=== PATIENT | male | born 1940 | race Caucasian/White ===

== ENCOUNTER 2017-08-05 12:09 | Inpatient (IN) | payer MEDICARE ==
[~2017-08-05] VITALS: Ht 175.3 cm; Wt 76.2 kg
[2017-08-05 12:44] LABS: BASOPHILS % (AUTO) 0.1 % (0.0-2.0); EOSINOPHILS % (AUTO) 0.4 % (0.0-6.0); HEMATOCRIT 39 % (39-51); HEMOGLOBIN 13.6 g/dL (13.5-17.5); LYMPHOCYTES # (AUTO) 0.9 /CMM (0.8-4.8); LYMPHOCYTES % (AUTO) 11.4 % (20.0-44.0); MEAN CORPUSCULAR HEMOGLOBIN 33 PG (26.0-33.0); MEAN CORPUSCULAR HGB CONC 35 g/dl (31.0-36.0); MEAN CORPUSCULAR VOLUME 94 fL (80-96); MONOCYTES # (AUTO) 0.4 /CMM (0.1-1.30); MONOCYTES % (AUTO) 5.2 % (2.0-12.0); NEUTROPHILS # (AUTO) 6.9 /CMM (1.8-8.9); NEUTROPHILS % (AUTO) 82.9 % (43.0-81.0); PLATELET COUNT (AUTO) 241 /CMM (150-450); RED BLOOD CELL COUNT(AUTO) 4.15 MIL/uL (4.5-6.0); WHITE BLOOD COUNT (AUTO) 8.2 K/uL (4.3-11.0)
[2017-08-05 12:52] LABS: CARBON DIOXIDE 27 mmol/L (21-32); CHLORIDE 103 mmol/L (98-107); CREATININE 1.3 mg/dL (0.6-1.3); GLUCOSE 116 mg/dL (74-106); POTASSIUM 3.9 mmol/L (3.5-5.1); SODIUM SERUM 138 mmol/L (136-145); UREA NITROGEN, BLOOD 14 mg/dL (7-18)
[2017-08-05 13:03] LABS: ALANINE AMINOTRANSFERASE 13 U/L (12-78); ALBUMIN 3.8 g/dL (3.4-5.0); ALCOHOL, BLOOD < 3 mg/dL (0-0); ALKALINE PHOSPHATASE 88 U/L (46-116); ASPARTATE AMINOTRANSFERASE 14 U/L (15-37); BILIRUBIN,DIRECT 0.2 mg/dL (0.0-0.2); BILIRUBIN,TOTAL 0.7 mg/dL (0.2-1.0); SALICYLATE 3.2 mg/dL (2.8-20.0); TOTAL PROTEIN, SERUM 7.5 g/dL (6.4-8.2)
[2017-08-05 13:11] LABS: ACETAMINOPHEN < 2 ug/ml (10-30)
[2017-08-05 13:23] LABS: APPEARANCE,URINE Clear (CLEAR); BILIRUBIN,URINE Negative (NEGATIVE); BLOOD, URINE Small Ery/uL (NEGATIVE); COLOR,URINE Yellow (YELLOW); KETONES,URINE Negative (NEGATIVE); LEUKOCYTE ESTERASE ,URINE Negative (NEGATIVE); NITRITE, URINE Negative (NEGATIVE); PH,URINE 7.5 (5.0-8.0); PROTEIN,URINE 30 mg/dl (NEGATIVE); UGLUCOSE Negative (NEGATIVE)
[2017-08-05 13:29] LABS: BACTERIA,URINE None seen /HPF (None Seen); SQUAMOUS EPITHELIAL CELL,UR Few /HPF (None Seen); WBC,URINE 0-3 /HPF (0-3)
[2017-08-05] MEDS ORDERED: HYDR-548 PO (13:51)
[2017-08-05] MEDS ORDERED: MAG HYDROX/AL HYDROX/SIMETH 30 ML UDC PO PRN (14:30)
[2017-08-05] MEDS ORDERED: MAGNESIUM HYDROXIDE 30 ML UDC PO PRN (14:30)
[2017-08-05] MEDS ORDERED: ACETAMINOPHEN 325 MG TABLET PO PRN (14:30)
[2017-08-05] MEDS ORDERED: clonazePAM 0.5 MG TABLET PO PRN (14:30)
[2017-08-05 15:00] VITALS: BP 175/97
[2017-08-05] MEDS ORDERED: HYDROCODONE/APAP 10/325MG 1 EA TABLET PO PRN (17:30)
[2017-08-05 20:40] VITALS: BP 171/97
[2017-08-05] MEDS: MIRTAZAPINE 15 MG TABLET PO SCH (21:33)
[2017-08-06 08:00] VITALS: BP 151/85
[2017-08-06] MEDS: AMLODIPINE BESYLATE 5 MG TABLET PO SCH (08:19)
[2017-08-06 10:03] LABS: CHOLESTEROL 173 mg/dL (<200); HDL CHOLESTEROL 65 mg/dL (40-60); LDL 106 mg/dL (0-99); TRIGLYCERIDES 62 mg/dL (30-150)
[2017-08-06 10:04] LABS: ALANINE AMINOTRANSFERASE 16 U/L (12-78); ALBUMIN 3.6 g/dL (3.4-5.0); ALKALINE PHOSPHATASE 81 U/L (46-116); ASPARTATE AMINOTRANSFERASE 15 U/L (15-37); BILIRUBIN,TOTAL 0.8 mg/dL (0.2-1.0); CARBON DIOXIDE 26 mmol/L (21-32); CHLORIDE 104 mmol/L (98-107); CREATININE 1.5 mg/dL (0.6-1.3); GLUCOSE 134 mg/dL (74-106); POTASSIUM 3.8 mmol/L (3.5-5.1); SODIUM SERUM 139 mmol/L (136-145); TOTAL PROTEIN, SERUM 7.2 g/dL (6.4-8.2); UREA NITROGEN, BLOOD 15 mg/dL (7-18)
[2017-08-06] MEDS ORDERED: CLONIDINE HCL 0.1 MG TABLET PO PRN (12:30)
[2017-08-06] MEDS ORDERED: Z GUARD REMEDY 2 OZ OINT TP PRN (13:00)
[2017-08-06 16:00] VITALS: BP 143/81
[2017-08-06] MEDS: GUAIFENESIN/D-METHORPHAN HB 5 ML UDC PO PRN ×2 (17:33→23:21)
[2017-08-06 20:00] VITALS: BP 149/84
[2017-08-06] MEDS: MIRTAZAPINE 15 MG TABLET PO SCH (21:35)
[2017-08-06] MEDS: TEMAZEPAM 7.5 MG CAPSULE PO PRN (23:21)
[2017-08-07 08:00] VITALS: BP 132/76
[2017-08-07] MEDS: AMLODIPINE BESYLATE 5 MG TABLET PO SCH (08:39)
[2017-08-07 16:00] VITALS: BP 137/80
[2017-08-07 20:00] VITALS: BP 125/76
[2017-08-07] MEDS: MIRTAZAPINE 15 MG TABLET PO SCH (21:21)
[2017-08-07] MEDS: GUAIFENESIN/D-METHORPHAN HB 5 ML UDC PO PRN (21:21)
[2017-08-07] MEDS: TEMAZEPAM 7.5 MG CAPSULE PO PRN (21:21)
[2017-08-07] MEDS ORDERED: MIRTAZAPINE 15 MG TABLET PO SCH (22:00)
[2017-08-08 08:06] VITALS: BP 145/99
[2017-08-08] MEDS: AMLODIPINE BESYLATE 5 MG TABLET PO SCH (08:19)
[2017-08-08 15:50] VITALS: BP 107/57
[2017-08-08 20:00] VITALS: BP 143/81
[2017-08-08] MEDS: MIRTAZAPINE 15 MG TABLET PO SCH (21:25)
[2017-08-08] MEDS: TEMAZEPAM 7.5 MG CAPSULE PO PRN (21:26)
[2017-08-08] MEDS: GUAIFENESIN/D-METHORPHAN HB 5 ML UDC PO PRN (21:26)
[2017-08-09] MEDS: AMLODIPINE BESYLATE 5 MG TABLET PO SCH (08:53)
[2017-08-09 08:58] VITALS: BP 118/81
[2017-08-09] MEDS ORDERED: POLYVINYL ALCOHOL 15 ML BOTTLE EACHEYE PRN (14:30)
[2017-08-09 16:00] VITALS: BP 107/66
[2017-08-09 19:39] VITALS: BP 149/76
[2017-08-09] MEDS: MIRTAZAPINE 15 MG TABLET PO SCH (21:46)
[2017-08-10 08:00] VITALS: BP 118/63
[2017-08-10] MEDS: AMLODIPINE BESYLATE 5 MG TABLET PO SCH (09:00)
[2017-08-10 16:00] VITALS: BP 111/69
[2017-08-10 20:01] VITALS: BP 112/77
[2017-08-10] MEDS ORDERED: MIRTAZAPINE 15 MG TABLET PO SCH (22:00)
[2017-08-11 08:05] VITALS: BP 183/96
[2017-08-11 08:29] VITALS: BP 183/96
[2017-08-11] MEDS: AMLODIPINE BESYLATE 5 MG TABLET PO SCH (08:29)
== END 2017-08-11 16:13 | disposition home health service (06) | DRG 885 ==
LOC: ER 12:13 → GPS 13:58
PROVIDERS: ADMIT Psychiatry & Neurology Psychiatry; ATTEND Internal Medicine
DX: F33.2 Major depressive disorder, recurrent severe without psychotic features (principal); G93.41 Metabolic encephalopathy; F23 Brief psychotic disorder; F03.90 Unspecified dementia, unspecified severity, without behavioral disturbance, psychotic disturbance, mood disturbance, and anxiety; F41.9 Anxiety disorder, unspecified; I10 Essential (primary) hypertension; M19.90 Unspecified osteoarthritis, unspecified site; Z73.6 Limitation of activities due to disability
CPT/HCPCS: 36415; 71045-TC; 80048-TC; 80053-TC; 80061-TC; 80076-TC; 80305; 81000-TC; 85025-TC; 87081-TC; A4606; G0480; Z7610